=== PATIENT | male | born 1955 | race African-American/Black ===

== ENCOUNTER 2018-02-17 07:24 | Emergency (ER) | payer MEDICAID ==
[~2018-02-17] VITALS: Ht 177.8 cm; Wt 95.0 kg
[~2018-02-17 07:24] MED LIST: ALBU6.7H INH; ALLO100T PO; AMLO2.5T45 PO; ATEN-42 PO; CLIN45GE TP; CLOP75TA33 PO; DOCU-150 PO; DOXY100C42 PO; ERGO500013 PO; FAMO20TA8 PO; FLUT16SP15 BOTHNSTRLS; GABA-529 PO; HYDR30CR96 TOP; KETO120S3 TP; LORA10TA7 PO; MULT-1146 PO; MULT-348 PO; OMEP20CA10 PO; SIMV10TA6 PO; TRIA1CAP6 PO; [UNRECOGNIZED DRUG - CODE] TP
[2018-02-17] MEDS ORDERED: TRAMADOL 50MG TABLET PO ONE (09:45)
[2018-02-17] MEDS ORDERED: IBUPROFEN 600MG TABLET PO ONE (09:45)
[2018-02-17 13:23] VITALS: BP 151/88
== END 2018-02-17 13:31 | disposition home or self-care (01) ==
LOC: ER 07:24
DX: R60.0 Localized edema (principal); M25.572 Pain in left ankle and joints of left foot; R03.0 Elevated blood-pressure reading, without diagnosis of hypertension; Z79.899 Other long term (current) drug therapy
CPT/HCPCS: 73610; 73630; 93971; 99284; Z7610

== ENCOUNTER 2019-07-24 01:19 | Inpatient (IN) | payer MEDICAID ==
[~2019-07-24] VITALS: Ht 180.3 cm; Wt 89.8 kg
[~2019-07-24 01:19] MED LIST changes: -ALBU6.7H INH; +ALBU6.7H11 INH; -OMEP20CA10 PO; +OMEP20CA14 PO; -SIMV10TA6 PO; +SIMV10TA97 PO
[2019-07-24] MEDS ORDERED: ONDANSETRON HCL 4MG/2ML INJ IV STA (04:02)
[2019-07-24] MEDS ORDERED: FUROSEMIDE 40MG/4ML VIAL IV ONE (04:15)
[2019-07-24] MEDS ORDERED: NITROGLYCERIN OINT 1GM/INCH UDPKT TD ONE (04:15)
[2019-07-24 04:36] LABS: BASOPHILS % 0.8 % (0.0-2.0); HEMATOCRIT. 41.8 % (42.0-52.0); HEMOGLOBIN. 13.9 g/dL (14.0-18.0); LYMPHOCYTES % 24.4 % (20.0-50.0); MEAN CORPUSCULAR HEMOGLOBIN 31.7 pg (28.0-32.0); MEAN CORPUSCULAR VOLUME 95.7 fL (80.0-94.0); MEAN PLATELET VOLUME 8.5 fl (7.4-10.4); MONOCYTES % 8.9 % (2.0-8.0); NEUTROPHILS % 64.9 % (40.0-76.0); PLATELET 194 x1000/uL (130-400); RED BLOOD CELL COUNT 4.37 mill/uL (4.7-6.1); RED CELL DISTRIBUTION WIDTH 14.3 % (11.6-14.6)
[2019-07-24] MEDS ORDERED: AZITHROMYCIN 500 MG in DEXT 5% WATER 250 ML IV NR (04:45)
[2019-07-24] MEDS ORDERED: CEFTRIAXONE 1 G PREMIX 50 ML IV NR (04:45)
[2019-07-24 04:47] LABS: CHLORIDE 108 mEq/L (98-107)
[2019-07-24] MEDS ORDERED: LORAZEPAM 0.5MG TABLET PO PRN (09:15)
[2019-07-24] MEDS ORDERED: MAGNESIUM/ALUMINUM HYDROXIDE/SIMETHICONE 30ML UDC PO PRN (09:15)
[2019-07-24] MEDS ORDERED: DOCUSATE SODIUM 100MG CAPSULE PO PRN (09:15)
[2019-07-24] MEDS ORDERED: HALOPERIDOL LACTATE 5MG/ML VIAL IM PRN (09:15)
[2019-07-24] MEDS ORDERED: IPRATROPIUM/ALBUTEROL 0.5-3(2.5)MG/3ML NEB NEB PRN (09:15)
[2019-07-24] MEDS ORDERED: GUAIFENESIN 200MG/10ML SUGAR FREE UDC PO PRN (09:15)
[2019-07-24] MEDS ORDERED: ZOLPIDEM TARTRATE 5MG TABLET PO PRN (09:15)
[2019-07-24] MEDS ORDERED: KETOROLAC 15MG/ML VIAL IV PRN (09:15)
[2019-07-24] MEDS ORDERED: ACETAMINOPHEN 325MG TABLET PO PRN (09:15)
[2019-07-24] MEDS ORDERED: ONDANSETRON HCL 4MG/2ML INJ IV PRN (09:15)
[2019-07-24] MEDS ORDERED: ENOXAPARIN 40MG/0.4ML SYR SUBCUT NR (10:15)
[2019-07-24] MEDS: GUAIFENESIN/DM 600MG/30MG ER TAB 12HR PO SCH ×2 (10:17→22:30)
[2019-07-24 13:00] LABS: ETHANOL BLOOD < 10 mg/dL
[2019-07-24 13:02] LABS: TOTAL IRON BINDING CAPACITY 268 ug/dL (250-450)
[2019-07-24 13:03] LABS: LDL CHOLESTEROL 71 mg/dL (5-100)
[2019-07-24 13:05] LABS: HDL CHOLESTEROL 38 mg/dL (40-59)
[2019-07-24] MEDS ORDERED: ONDANSETRON 4MG ODT PO ONE (13:15)
[2019-07-24 14:10] LABS: FOLIC ACID (FOLATE) SERUM 7.5 ng/mL (>5.38)
[2019-07-24 14:54] LABS: CANNABINOID URINE SCREEN PRESUMTIVE POSITIVE (NEGATIVE)
[2019-07-24 14:55] LABS: *AMPHETAMINES SCREEN URINE NEGATIVE (NEGATIVE); *BARBITURATES SCREEN URINE NEGATIVE (NEGATIVE); *BENZODIAZEPINES SCREEN URINE NEGATIVE (NEGATIVE); *COCAINE SCREEN URINE NEGATIVE (NEGATIVE); METHADONE URINE SCREEN NEGATIVE (NEGATIVE); OPIATES URINE SCREEN PRESUMTIVE POSITIVE (NEGATIVE)
[2019-07-24 14:56] LABS: PHENCYCLIDINE URINE SCREEN NEGATIVE (NEGATIVE)
[2019-07-24 14:59] LABS: CREATINE KINASE MB FRACTION 2.4 ng/mL (0.5-3.6)
[2019-07-24 22:30] VITALS: BP 131/95
[2019-07-24 22:33] VITALS: BP 131/95
[2019-07-24] MEDS ORDERED: GABA-531 PO (22:47)
[2019-07-25 00:49] LABS: CREATINE KINASE MB FRACTION 2.4 ng/mL (0.5-3.6)
[2019-07-25 01:15] VITALS: BP 138/94
[2019-07-25] MEDS ORDERED: AZITHROMYCIN 500 MG in DEXT 5% WATER 250 ML IV SCH ×2 (06:00→08:00)
[2019-07-25 06:11] VITALS: BP 129/87
[2019-07-25 08:00] VITALS: BP 155/100
[2019-07-25] MEDS: GUAIFENESIN/DM 600MG/30MG ER TAB 12HR PO SCH (08:37)
[2019-07-25] MEDS: ENOXAPARIN 40MG/0.4ML SYR SUBCUT SCH ×2 (08:39→09:54)
[2019-07-25] MEDS ORDERED: CEFTRIAXONE 1 G PREMIX 50 ML IV SCH ×2 (09:00)
[2019-07-25] MEDS ORDERED: FAMOTIDINE 20MG TABLET PO SCH (09:00)
[2019-07-25] MEDS ORDERED: LISINOPRIL 20MG TABLET PO SCH (09:00)
[2019-07-25] MEDS ORDERED: ASPIRIN 325MG EC TABLET PO SCH (09:00)
[2019-07-25] MEDS ORDERED: AZIT500T8 MT (11:03)
[2019-07-25 11:04] VITALS: BP 155/100
== END 2019-07-25 12:22 | disposition home or self-care (01) | DRG 133 ==
LOC: ER 01:19 → 7WST 05:29 → EDBEDREQTM 05:32 → EDBEDREQ 05:32 → ENRESERV 21:27
PROVIDERS: ADMIT Internal Medicine; ATTEND Internal Medicine
DX: J96.00 Acute respiratory failure, unspecified whether with hypoxia or hypercapnia (principal); I27.20 Pulmonary hypertension, unspecified; E44.0 Moderate protein-calorie malnutrition; I11.0 Hypertensive heart disease with heart failure; E83.51 Hypocalcemia; I50.40 Unspecified combined systolic (congestive) and diastolic (congestive) heart failure; D63.8 Anemia in other chronic diseases classified elsewhere; J44.9 Chronic obstructive pulmonary disease, unspecified; F41.9 Anxiety disorder, unspecified; M19.90 Unspecified osteoarthritis, unspecified site; F17.210 Nicotine dependence, cigarettes, uncomplicated; F12.10 Cannabis abuse, uncomplicated; I25.10 Atherosclerotic heart disease of native coronary artery without angina pectoris; Z95.1 Presence of aortocoronary bypass graft; Z86.73 Personal history of transient ischemic attack (TIA), and cerebral infarction without residual deficits; Z68.27 Body mass index [BMI] 27.0-27.9, adult; Z91.013 Allergy to seafood
CPT/HCPCS: 36415; 71045; 80053; 80061; 80305; 80320; 82550; 82553; 82607; 82746; 83036; 83540; 83550; 83605; 83880; 84145; 84484; 85025; 93005; 93306; 93970; 94640; 99285; J0456; J0696; J1650; J1885; J1940; J2405; J7040; J7060; J7620; Q0162; G0480